=== PATIENT | female | born 1955 | race Native Hawaiian/Other Pacific Islander ===

== ENCOUNTER 2018-06-26 14:13 | Observation (INO) | payer OTHER ==
[~2018-06-26] VITALS: Ht 165.1 cm; Wt 80.3 kg
[2018-06-26 14:28] VITALS: BP 139/85; TEMP 97
[2018-06-26 22:20] VITALS: BP 125/65; TEMP 97.8; Ht 165.1 cm; Wt 80.3 kg
[2018-06-27 01:25] VITALS: BP 111/59; TEMP 97.6
[2018-06-27 10:56] VITALS: BP 124/55; TEMP 97.7
== END 2018-06-27 12:10 | disposition home or self-care (01) ==
LOC: ED 14:13 → MED/SURG 17:52
DX: S06.0X0A Concussion without loss of consciousness, initial encounter (principal); I10 Essential (primary) hypertension; E78.49 Other hyperlipidemia; Y92.89 Other specified places as the place of occurrence of the external cause; W11.XXXA Fall on and from ladder, initial encounter
CPT/HCPCS: 99220; 99282; G0378

== ENCOUNTER 2020-05-13 12:38 | Outpatient (CLI) | payer OTHER ==
[2020-05-13 13:10] LABS: PLATELET COUNT 199 K/uL (152-353)
[2020-05-13 13:41] LABS: POTASSIUM 3.5 mmol/L (3.6-5.2)
== END 2020-05-13 22:17 | disposition home or self-care (01) ==
LOC: RAD 12:38
PROVIDERS: Podiatrist
DX: Z01.810 Encounter for preprocedural cardiovascular examination (principal); Z01.811 Encounter for preprocedural respiratory examination; Z01.812 Encounter for preprocedural laboratory examination
CPT/HCPCS: 36415; 80053; 84550; 85027; 93005

== ENCOUNTER 2020-08-18 08:00 | Outpatient (CLI) | payer OTHER | END 2020-08-18 19:18 | disposition home or self-care (01) | LOC: INF 08:00 | PROVIDERS: ATTEND Internal Medicine | DX: Z23 Encounter for immunization (principal) | CPT/HCPCS: 96372 ==

== ENCOUNTER 2020-10-19 11:00 | Outpatient (CLI) | payer OTHER | END 2020-10-19 21:50 | disposition home or self-care (01) | LOC: INF 11:00 | PROVIDERS: ATTEND Internal Medicine | DX: Z23 Encounter for immunization (principal) | CPT/HCPCS: 96372 ==

== ENCOUNTER 2021-08-31 12:18 | Outpatient (CLI) | payer OTHER | END 2021-08-31 19:39 | disposition home or self-care (01) | LOC: MRI 12:18 | PROVIDERS: ATTEND Physician Assistant | DX: M25.562 Pain in left knee (principal) ==

== ENCOUNTER 2021-09-20 22:40 | Emergency (ER) | payer OTHER ==
[~2021-09-20] VITALS: Ht 165.1 cm; Wt 80.3 kg
[2021-09-20 23:38] LABS: PLATELET COUNT 213 K/uL (152-353)
[2021-09-20 23:41] LABS: POTASSIUM 4.1 mmol/L (3.6-5.2)
[2021-09-21 00:03] LABS: PARTIAL THROMBOPLASTIN TIME 24.3 SECONDS (24.5-33.6)
[2021-09-21 02:06] VITALS: BP 133/61; TEMP 98.9
== END 2021-09-21 02:07 | disposition home or self-care (01) ==
LOC: ED 22:40
PROVIDERS: Hospitalist
DX: S16.1XXA Strain of muscle, fascia and tendon at neck level, initial encounter (principal); S10.83XA Contusion of other specified part of neck, initial encounter; V86.99XA Unspecified occupant of other special all-terrain or other off-road motor vehicle injured in nontraffic accident, initial encounter; Y92.89 Other specified places as the place of occurrence of the external cause
CPT/HCPCS: 36415; 80048; 80320; 85027; 85610; 85730; 96374; 96375; 96376; 99284; J2270; J2360; J2405; L0120

== ENCOUNTER 2021-11-15 19:46 | Emergency (ER) | payer OTHER ==
[~2021-11-15] VITALS: Ht 165.1 cm; Wt 85.3 kg
[2021-11-15 19:50] VITALS: BP 140/72; TEMP 97.8
[2021-11-15 20:44] LABS: POTASSIUM 3.9 mmol/L (3.6-5.2)
[2021-11-15 20:45] LABS: PLATELET COUNT 257 K/uL (152-353)
[2021-11-15 20:57] LABS: PARTIAL THROMBOPLASTIN TIME 24.5 SECONDS (24.5-33.6)
== END 2021-11-16 02:27 | disposition home or self-care (01) ==
LOC: ED 19:46
PROVIDERS: Emergency Medicine
DX: M79.605 Pain in left leg (principal); R79.89 Other specified abnormal findings of blood chemistry; Z53.29 Procedure and treatment not carried out because of patient's decision for other reasons; Z98.890 Other specified postprocedural states
CPT/HCPCS: 80048; 85027; 85379; 85610; 85730; 96372; 99284; J2175; J2405

== ENCOUNTER 2021-11-21 12:41 | Outpatient (CLI) | payer OTHER | END 2021-11-21 20:57 | disposition home or self-care (01) | LOC: RAD 12:41 | PROVIDERS: ATTEND Physician Assistant | DX: M25.562 Pain in left knee (principal) ==

== ENCOUNTER 2021-12-29 15:31 | Outpatient (CLI) | payer OTHER | END 2021-12-29 19:00 | disposition home or self-care (01) | LOC: MRI 15:31 | PROVIDERS: ATTEND Orthopaedic Surgery | DX: M25.512 Pain in left shoulder (principal) ==

== ENCOUNTER 2022-02-09 13:46 | Outpatient (CLI) | payer OTHER | END 2022-02-09 19:08 | disposition home or self-care (01) | LOC: RAD 13:46 | PROVIDERS: ATTEND Physician Assistant | DX: M25.562 Pain in left knee (principal) ==

== ENCOUNTER 2023-09-17 15:41 | Outpatient (CLI) | payer OTHER | END 2023-09-17 19:23 | disposition home or self-care (01) | LOC: RAD 15:41 | PROVIDERS: ATTEND Physician Assistant | DX: M25.562 Pain in left knee (principal) ==